=== PATIENT | male | born 1990 | race Asian ===

== ENCOUNTER 2019-03-08 13:46 | Emergency (ER) | payer OTHER ==
[~2019-03-08] VITALS: Ht 177.8 cm; Wt 117.9 kg
[2019-03-08 13:46] VITALS: BP 134/90; TEMP 98.1
== END 2019-03-08 14:57 | disposition home or self-care (01) ==
LOC: ED 13:46
PROC: 2W2BX4Z Dressing of Left Upper Arm using Bandage (ICD-10-PCS; principal; 2019-03-08)
PROC: 2W2AX4Z Dressing of Right Upper Arm using Bandage (ICD-10-PCS; 2019-03-08)
DX: T22.132A Burn of first degree of left upper arm, initial encounter (principal); T22.131A Burn of first degree of right upper arm, initial encounter; T65.91XA Toxic effect of unspecified substance, accidental (unintentional), initial encounter; T31.0 Burns involving less than 10% of body surface; Y92.69 Other specified industrial and construction area as the place of occurrence of the external cause
CPT/HCPCS: 90471; 90715; 96372; 99283; J0696; J1885